=== PATIENT | female | born 1985 | race Caucasian/White ===

== ENCOUNTER 2018-12-14 07:29 | Day surgery (SDC) | payer OTHER ==
[~2018-12-14] VITALS: Ht 175.3 cm; Wt 112.5 kg
[~2018-12-14 07:29] MED LIST: ADDE1TAB14 PO; ADDE30CA3 PO; NS 1,000 ML IV ONE; OMEP-218 PO
[2018-12-14] MEDS ORDERED: LIDOCAINE 2% INJ 100 MG/5 ML SDV (FOR ANES.) As Ordered ONE (08:12)
[2018-12-14] MEDS ORDERED: PROPOFOL 200 MG/20 ML VIAL As Ordered ONE ×2 (08:12→08:28)
--- NOTE | 2018-12-14 08:30 | ROOR ---
Patient Name: Mirna Davies Procedure Date: 12/14/2018 8:11 AM Date of : 1985 Age: 33 Room: [facility] Gender: Female Note Status: Finalized Procedure: Upper Endoscopy + Biopsies Indications: Epigastric abdominal pain Providers: Adan Lr MD Referring MD: HIRA INIGUEZ MD Requesting Provider: Medicines: Monitored Anesthesia Care Complications: No immediate complications. Procedure: Pre-Anesthesia Assessment: - The heart rate, respiratory rate, oxygen saturations, blood pressure, adequacy of pulmonary ventilation, and response to care were monitored throughout the procedure. The Endoscope was introduced through the mouth, and advanced to the second part of duodenum. The upper GI endoscopy was accomplished without difficulty. The patient tolerated the procedure well. Findings: The Z-line was irregular and was found 40 cm from the incisors. Multiple biopsies were obtained with cold forceps for evaluation to rule out Ceballos's Esophagus randomly at the gastroesophageal junction. A small hiatal hernia was present. No other significant abnormalities were identified in a careful examination of the stomach. Biopsies were taken with a cold forceps in the gastric antrum for Helicobacter pylori testing. The exam of the duodenum was otherwise normal. Impression: - Z-line irregular, 40 cm from the incisors. - Small hiatal hernia. - Multiple biopsies were obtained at the gastroesophageal junction. - Biopsies were taken with a cold forceps for Helicobacter pylori testing. - The examination was otherwise normal. Recommendation: - Patient has a contact number available for emergencies. The signs and symptoms of potential delayed complications were discussed with the patient. Return to normal activities tomorrow. Written discharge instructions were provided to the patient. - High fiber diet. - Discharge patient to home. - Continue present medications. - Follow an antireflux regimen. - Await pathology results. - Telephone GI clinic for pathology results in 1 week. - Return to referring physician. - The findings and recommendations were discussed with the patient's family. Adan Lr MD Adan Lr MD 12/14/2018 8:30:17 AM Electronically signed by Adan Lr MD Number of Addenda: 0 Note Initiated On: 12/14/2018 8:11 AM Estimated Blood Loss: Estimated blood loss: none.
--- NOTE | 2018-12-14 08:49 | ROOR ---
Patient Name: Mirna Davies Procedure Date: 12/14/2018 8:12 AM Date of : 1985 Age: 33 Room: [facility] Gender: Female Note Status: Finalized Procedure: Total Colonoscopy to cecum + Bx. Indications: Screening in patient at increased risk: Colorectal cancer in mother before age 60 Providers: Adan Lr MD Referring MD: HIRA INIGUEZ MD Requesting Provider: Medicines: Monitored Anesthesia Care Complications: No immediate complications. Procedure: Pre-Anesthesia Assessment: - The heart rate, respiratory rate, oxygen saturations, blood pressure, adequacy of pulmonary ventilation, and response to care were monitored throughout the procedure. The Colonoscope was introduced through the anus and advanced to the cecum, identified by appendiceal orifice and ileocecal valve. The colonoscopy was performed without difficulty. The patient tolerated the procedure well. The quality of the bowel preparation was excellent. Findings: The perianal and digital rectal examinations were normal. Non-bleeding internal hemorrhoids were found during retroflexion. The hemorrhoids were small and Grade I (internal hemorrhoids that do not prolapse). A localized area of mildly erythematous mucosa was found in the rectum. Biopsies were taken with a cold forceps for histology. The exam was otherwise without abnormality on direct and retroflexion views. Impression: - Non-bleeding internal hemorrhoids. - Erythematous mucosa in the rectum. Biopsied. - The examination was otherwise normal on direct and retroflexion views. - The exam was otherwise normal to the cecum. Recommendation: - Patient has a contact number available for emergencies. The signs and symptoms of potential delayed complications were discussed with the patient. Return to normal activities tomorrow. Written discharge instructions were provided to the patient. - High fiber diet. - Discharge patient to home. - Continue present medications. - Await pathology results. Adan Lr MD Adan Lr MD 12/14/2018 8:48:33 AM Electronically signed by Adan Lr MD Number of Addenda: 0 Note Initiated On: 12/14/2018 8:12 AM Estimated Blood Loss: Estimated blood loss: none.
[2018-12-14 09:31] VITALS: BP 177/89
== END 2018-12-14 09:34 | disposition home or self-care (01) ==
LOC: M OPP 07:29
PROVIDERS: ATTEND Internal Medicine Gastroenterology
DX: R10.13 Epigastric pain (principal); K62.5 Hemorrhage of anus and rectum; K64.0 First degree hemorrhoids; K62.89 Other specified diseases of anus and rectum; Z80.0 Family history of malignant neoplasm of digestive organs; K22.8 Other specified diseases of esophagus; K44.9 Diaphragmatic hernia without obstruction or gangrene; Z87.891 Personal history of nicotine dependence